=== PATIENT | male | born 1990 | race Caucasian/White ===

== ENCOUNTER 2022-05-27 04:23 | Emergency (ER) | payer OTHER ==
[2022-05-27] MEDS ORDERED: Sodium Chloride 0.9% 1,000 ML IV ONE (04:29)
[2022-05-27] MEDS ORDERED: Ondansetron 4 MG/2 ML SDV IVPUSH ONE (04:29)
[2022-05-27] MEDS ORDERED: Sodium Chloride 0.9% 2.5 ML Syringe FLUSH PRN (04:29)
[2022-05-27] MEDS ORDERED: Sodium Chloride 0.9% 10 ML Syringe FLUSH PRN (04:29)
[2022-05-27] MEDS ORDERED: Iopamidol 755 MG/ML 500 ML Multipack Bottle IVPUSH ONE (04:50)
[2022-05-27 05:25] LABS: CARBON DIOXIDE,CO2 25.8 mmol/L (21.0-32.0); POTASSIUM,K 3.4 mmol/L (3.5-5.1)
[2022-05-27] MEDS ORDERED: LORazepam 2 MG/ML SDV IVPUSH ONE (06:11)
[2022-05-27] MEDS ORDERED: fentaNYL 50 MCG/ML SDV IVPUSH ONE (06:11)
[2022-05-27] MEDS ORDERED: Lidocaine 1% 5 ML VIAL INJECT ONE (06:16)
[2022-05-27] MEDS ORDERED: Lidocaine 1% 50 ML MDV ONE (06:17)
[2022-05-27] MEDS ORDERED: Lidocaine HCl/PF 10 MG/ML SDV INJECT ONE (06:20)
[2022-05-27] MEDS ORDERED: Naloxone 0.4 MG/ML SDV ONE (07:14)
[2022-05-27] MEDS ORDERED: Naloxone 0.4 MG/ML SDV IVPUSH ONE (07:19)
== END 2022-05-27 07:29 ==
LOC: MW.ED 04:23
DX: S22.41XA Multiple fractures of ribs, right side, initial encounter for closed fracture (principal); S42.001A Fracture of unspecified part of right clavicle, initial encounter for closed fracture; S36.113A Laceration of liver, unspecified degree, initial encounter; S27.0XXA Traumatic pneumothorax, initial encounter; S27.321A Contusion of lung, unilateral, initial encounter; S70.211A Abrasion, right hip, initial encounter; U07.1 COVID-19; F10.929 Alcohol use, unspecified with intoxication, unspecified; Y90.7 Blood alcohol level of 200-239 mg/100 ml; V89.2XXA Person injured in unspecified motor-vehicle accident, traffic, initial encounter; Y92.410 Unspecified street and highway as the place of occurrence of the external cause
CPT/HCPCS: 32551; 36415; 70450; 71045; 71260; 72125; 72128; 72131; 74177; 80053; 80305; 80307; 81001; 83690; 85025; 87635; 93005; 96361; 96374; 96375; 99285; J2060; J2310; J2405; J3010; J3490; J7030; Q9967; U0002